=== PATIENT | female | born 1985 | race Caucasian/White ===

== ENCOUNTER 2017-02-21 06:11 | Day surgery (SDC) | payer OTHER ==
[2017-02-09 13:04] VITALS: BMI 25.0
[2017-02-21] MEDS ORDERED: HEPARIN NA (PORCINE) 5,000 UNITS/ML 1ML VIAL ONE (07:00)
[2017-02-21] MEDS ORDERED: BUPIVACAINE HCL/PF 2.5 MG/ML - 30 ML VIAL IJ ONE (07:05)
[2017-02-21] MEDS ORDERED: LIDOCAINE HCL 1%, 10 MG/ML (20ML VIAL) ONE (07:05)
[2017-02-21] MEDS ORDERED: ePHEDrine SULFATE 50 MG/1 ML AMPULE ONE (07:18)
[2017-02-21] MEDS ORDERED: PROPOFOL 20 ML ONE ×8 (07:19→09:59)
[2017-02-21] MEDS ORDERED: SUCCINYLCHOLINE CHLORIDE 200 MG/10 ML VIAL ONE (07:19)
[2017-02-21] MEDS ORDERED: MIDAZOLAM HCL 2 MG/2 ML SINGLE DOSE VIAL ONE ×2 (07:19→08:10)
[2017-02-21] MEDS ORDERED: KETOROLAC TROMETHAMINE 30 MG/1 ML VIAL ONE (07:23)
[2017-02-21] MEDS ORDERED: ONDANSETRON 4 MG/2 ML VIAL ONE (07:23)
[2017-02-21] MEDS ORDERED: ceFAZolin SODIUM 1 GM VIAL ONE (07:23)
[2017-02-21] MEDS ORDERED: DEXAMETHASONE SOD PHOSPHATE 4 MG/1 ML VIAL ONE (07:23)
[2017-02-21] MEDS ORDERED: BUPIVACAINE HCL/PF 0.5% (5MG/ML) 10 ML VIAL ONE (07:48)
[2017-02-21] MEDS ORDERED: LIDOCAINE 1%-EPI 1:100,000 30 ML MDV IJ ONE (08:46)
[2017-02-21] MEDS ORDERED: oxyCODONE HCL 5 MG TABLET PO PRN ×3 (11:24→11:48)
[2017-02-21] MEDS ORDERED: ONDANSETRON 4 MG/2 ML VIAL IVPUSH PRN (11:24)
[2017-02-21] MEDS ORDERED: LACTATED RINGERS SOLUTION 1,000 ML IV SCH ×2 (11:30→12:00)
[2017-02-21] MEDS ORDERED: ONDANSETRON 4 MG/2 ML VIAL IVPB PRN (11:55)
[2017-02-21] MEDS ORDERED: PROMETHAZINE HCL 25 MG/1 ML VIAL IVPUSH PRN (11:56)
[2017-02-21] MEDS ORDERED: ACETAMINOPHEN INJECTION 100 ML IVPB ONE (14:33)
[2017-02-21] MEDS ORDERED: ACETAMINOPHEN 1000 MG/100 ML VIAL (NON FORMULARY) IVPB ONE (15:06)
[2017-02-21] MEDS ORDERED: PROMETHAZINE HCL 25 MG/1 ML VIAL ONE (17:21)
[2017-02-21 18:43] VITALS: TEMP 97.6
[2017-02-21 18:56] VITALS: BP 104/72; PULSE 80
--- NOTE | 2017-02-21 19:16 | OP ---
DATE OF OPERATION: 02/21/2017 PREOPERATIVE DIAGNOSIS: Abdominal lipodystrophy with section scar deformity. POSTOPERATIVE DIAGNOSIS: Abdominal lipodystrophy with section scar deformity. ATTENDING SURGEON: Wilma Alvarez M.D. ASSISTANTS: None. ANESTHESIA: Sedation with spinal anesthesia. DESCRIPTION OF PROCEDURE: Patient is marked in the holding area, awake, aware of all incisions, resulting in scars, understands and agrees to proceed. Patient is given 5000 units of subcutaneous heparin preoperatively. Given a gram of Ancef preoperatively. Brought to the operating room, placed in a supine position. After anesthesia is given, she is prepped and draped in standard surgical fashion. A timeout is called. Patient, procedure, incision sites are verified. After assessment that the spinal anesthesia is in fact working, a small stab wound incision is made within the planned resection pattern of the skin and the infiltration is performed. Infiltration wetting solution is a liter of normal saline with 20 mL of 1% lidocaine plain, and 1 ampule 1:100,000 epinephrine. A total of 2500 mL of wetting solution is infiltrated in the upper and lower abdomen, altogether a full 25 minutes is awaited for effect of the wetting solution. After waiting 25 minutes, the SAFE liposuction technique is performed using a nonsuction pre-tunneling and nonsuction post-tunneling technique with 4 mm basket tipped cannula, after which the planned liposuction is performed with a 5 mm cannula using a power assisted liposuction system. The more superficial liposuction is performed using the 4 mm cannula using a power assisted system. The lipoaspirates are 1750 mL from the lower abdomen, 550 abdomen from the upper abdomen, and 200 mL miscellaneously around the lateral abdomen for a total lipoaspirate in the case of 2500 mL. The attention is then directed toward the resection of skin and fat. The scar is marked and an incision is made 1.5 cm inferior to this, excising the entirety of the scar. This incision is then carried down to the level of the abdominal wall fascia, dissection then carried along the abdominal wall fascia carefully dividing, perforating blood vessels as they are encountered. No undermining of the superior abdominal skin fat is performed without the need to flex the patient, closure is able to be performed without tension, and the umbilicus is left in situ. The closure is then performed over a size 10 flat ARTUR drain brought out through the right lateral extent of the incision, secured with the 3-0 silk drain suture. Closure is performed on the superficial fascial system sutures with 2-0 Vicryl buried suture. Skin is then closed with a series of interrupted buried deep dermal 3-0 Monocryl suture followed by running subcuticular Monocryl suture. The liposuction holes that were not excised are closed with a series of interrupted 5-0 nylon suture, liposuction portals are dressed with bacitracin, eye patch, and Tegaderm. The mini tummy tuck scar is dressed with a series of Steri-Strips. ABD gauze is applied. A compressive abdominal binder is placed. The drain is placed to bulb suction. Patient is awoken from anesthesia, transferred to recovery without complication. WILMA ALVAREZ M.D. [id number]
--- NOTE | 2017-02-23 15:45 | PATH ---
Surgical Pathology Report Patient Name: ANNABEL CORNELL [facility]. Rec. #: [id number] /Age/Gender: 1985 (Age: 31) / F Account: [id number] Location: [facility] Taken: 02/21/2017 Received: 02/21/2017 Reported: 02/23/2017 Physicians: Sergio Walker Specimen(s) Received ABDOMINAL SKIN AND TISSUE Clinical History Cosmetic Final Diagnosis ABDOMINAL SKIN AND TISSUE, LIPOSUCTION AND MINI ABDOMINOPLASTY: SKIN (WITH SCAR) AND ADIPOSE TISSUE, DESCRIBED (GROSS EXAMINATION ONLY). Electronically Signed Cynthia Neri M.D. Gross Description Received in formalin labeled "abdominal skin and tissue," is a 314 g, 19.5 x 10.5 cm valdivia, elliptical, unoriented portion of skin excised to depth of 3.5 cm. The epidermal surface displays a 12.5 cm in length linear scar with a central defect. Sectioning of the underlying soft tissue reveals predominantly yellow, lobulated adipose tissue with foci of firm fibrous tissue in the area of the scar. No masses are identified. No sections are submitted, gross only. /02/22/2017 saudi02/22/2017
== END 2017-02-21 18:35 | disposition home or self-care (01) ==
LOC: FASU 06:11
PROVIDERS: ATTEND Plastic Surgery
PROC: 0J080ZZ Alteration of Abdomen Subcutaneous Tissue and Fascia, Open Approach (ICD-10-PCS; 2017-02-21)
PROC: 0J083ZZ Alteration of Abdomen Subcutaneous Tissue and Fascia, Percutaneous Approach (ICD-10-PCS; principal; 2017-02-21 09:13)
DX: Z41.1 Encounter for cosmetic surgery (principal); E88.1 Lipodystrophy, not elsewhere classified; L90.5 Scar conditions and fibrosis of skin
CPT/HCPCS: 84703; 88300-TC; 94760; J1644

== ENCOUNTER 2021-06-30 18:22 | Inpatient (IN) | payer OTHER ==
[2021-06-30] MEDS ORDERED: morphine CARPU-JECT 4 MG/1 ML DISP.SYRIN IVPUSH ONE (19:22)
[2021-06-30] MEDS ORDERED: SODIUM CHLORIDE 1,000 ML IV ONE ×2 (19:22→22:07)
[2021-06-30] MEDS ORDERED: VANCOMYCIN 1 GM in D5W (PRE-DOCKED) 1,000 MG/250 ML IVPB ONE (19:22)
[2021-06-30] MEDS ORDERED: AMPICILLIN NA/SULBACTAM NA 1.5 GM in SODIUM CHLORIDE 100 ML IVPB ONE (19:23)
[2021-06-30] MEDS ORDERED: ACETAMINOPHEN 1000 MG/100 ML VIAL IVPB ONE (19:38)
[2021-06-30] MEDS ORDERED: VANCOMYCIN 1,000 MG VIAL (RESTRICTED TO ID ONLY) ONE (19:42)
[2021-06-30] MEDS ORDERED: ACETAMINOPHEN INJECTION 100 ML IVPB ONE (19:42)
[2021-06-30] MEDS ORDERED: AMPICILLIN NA/SULBACTAM NA 1.5 GM VIAL ONE (19:42)
[2021-06-30 20:07] LABS: BASO % 0.3 % (0-2.0); EOS % 0.6 % (0-4.5); HEMATOCRIT 30.1 % (32.4-45.2); HEMOGLOBIN 9.8 GM/dl (10.7-15.3); LYMPH % 17.4 % (8-40); MCH 28.8 pg (25.7-33.7); MCHC 32.6 g/dl (32.0-36.0); MEAN CELL VOLUME 88.4 fl (80-96); MEAN PLT VOLUME 7.1 fl (7.5-11.1); NEUT % 76.7 % (42.8-82.8); PLATELET COUNT 508 10^3/uL (134-434); RBC 3.41 M/mm3 (3.60-5.2); RDW 12.7 % (11.6-15.6); WHITE BLOOD COUNT 15.4 K/mm3 (4.0-10.8)
[2021-06-30 20:18] LABS: ALBUMIN 2.4 g/dl (3.4-5.0); BILIRUBIN,TOTAL 0.4 mg/dl (0.2-1); CALCIUM 8.1 mg/dl (8.5-10); CREATININE 0.4 mg/dl (0.55-1.3); TOT PROT 5.7 g/dl (6.4-8.2)
[2021-06-30 20:27] LABS: EPITHELIAL CELLS FEW /hpf
[2021-06-30] MEDS ORDERED: KETOROLAC TROMETHAMINE 30 MG/1 ML VIAL ONE (21:48)
[2021-06-30] MEDS ORDERED: ONDANSETRON *ODT* 4 MG TABLET ONE (22:03)
[2021-06-30] MEDS ORDERED: ONDANSETRON *ODT* 4 MG TABLET SL ONE (22:03)
[2021-06-30] MEDS ORDERED: KETOROLAC TROMETHAMINE 30 MG/1 ML VIAL IVPUSH ONE (22:03)
[2021-06-30 22:04] LABS: LACTIC ACID 3.4 mmol/L (0.4-2.0)
[2021-06-30] MEDS ORDERED: diphenhydrAMINE HCL 25 MG CAPSULE (FP) PO ONE (23:25)
[2021-06-30] MEDS ORDERED: ACETAMINOPHEN 500 MG TABLET (FP) PO PRN (23:28)
[2021-07-01] MEDS ORDERED: ACETAMINOPHEN 325 MG TABLET (FP) ONE (02:13)
[2021-07-01] MEDS ORDERED: AMPICILLIN NA/SULBACTAM NA 1.5 GM VIAL ONE ×3 (02:23→09:15)
[2021-07-01] MEDS: AMPICILLIN NA/SULBACTAM NA 1.5 GM in SODIUM CHLORIDE 100 ML IVPB SCH ×2 (02:28→09:24)
[2021-07-01 03:05] VITALS: BMI 32.5
[2021-07-01] MEDS ORDERED: IBUPROFEN 400 MG TABLET (FP) PO ONE ×2 (03:20→14:00)
[2021-07-01] MEDS ORDERED: SODIUM CHLORIDE 100 ML IVPB ONE ×3 (04:13→18:00)
[2021-07-01] MEDS: LEVOTHYROXINE NA 100 MCG TABLET (FP) PO SCH (06:42)
[2021-07-01 07:26] LABS: BASO % 0.9 % (0-2.0); EOS % 0.8 % (0-4.5); HEMOGLOBIN 8.6 GM/dl (10.7-15.3); LYMPH % 17.3 % (8-40); MCH 29.2 pg (25.7-33.7); MCHC 34.2 g/dl (32.0-36.0); MEAN CELL VOLUME 85.3 fl (80-96); MEAN PLT VOLUME 6.6 fl (7.5-11.1); MONO % 4.8 % (3.8-10.2); NEUT % 76.2 % (42.8-82.8); PLATELET COUNT 404 10^3/uL (134-434); RBC 2.94 M/mm3 (3.60-5.2); RDW 12.6 % (11.6-15.6); WHITE BLOOD COUNT 10.5 K/mm3 (4.0-10.8)
[2021-07-01 07:37] LABS: CALCIUM 7.7 mg/dl (8.5-10); CREATININE 0.4 mg/dl (0.55-1.3)
[2021-07-01] MEDS: ACETAMINOPHEN 325 MG TABLET (FP) PO PRN (09:21)
[2021-07-01] MEDS: SENNOSIDES 8.6MG TABLET (FP) PO SCH ×2 (09:22→21:07)
[2021-07-01] MEDS ORDERED: ENOXAPARIN NA (PORCINE) 40 MG/0.4 ML DISP.SYRIN SQ SCH (10:00)
[2021-07-01] MEDS ORDERED: VANCOMYCIN 1 GM in D5W (PRE-DOCKED) 1,000 MG/250 ML IVPB SCH (10:00)
[2021-07-01] MEDS ORDERED: AMPICILLIN NA/SULBACTAM NA 3 GM VIAL ONE (18:00)
[2021-07-01] MEDS: AMPICILLIN NA/SULBACTAM NA 3 GM in SODIUM CHLORIDE 100 ML IVPB SCH (18:06)
[2021-07-01] MEDS: metoPROLOL SUCCINATE 25 MG TAB.SR.24H (FP) PO SCH (21:07)
[2021-07-02] MEDS: AMPICILLIN NA/SULBACTAM NA 3 GM in SODIUM CHLORIDE 100 ML IVPB SCH ×3 (02:29→17:31)
[2021-07-02] MEDS: ACETAMINOPHEN 325 MG TABLET (FP) PO ONE ×2 (02:30→06:56)
[2021-07-02] MEDS: oxyCODONE HCL 5 MG TABLET PO ONE ×2 (02:30→06:56)
[2021-07-02] MEDS: LEVOTHYROXINE NA 100 MCG TABLET (FP) PO SCH (06:14)
[2021-07-02 08:19] LABS: ALBUMIN 2.2 g/dl (3.4-5.0); BILIRUBIN,TOTAL 0.4 mg/dl (0.2-1); CALCIUM 8.2 mg/dl (8.5-10); CREATININE 0.4 mg/dl (0.55-1.3); MAGNESIUM 1.9 mg/dL (1.8-2.4); TOT PROT 5.4 g/dl (6.4-8.2)
[2021-07-02 08:23] LABS: BASO % 1.3 % (0-2.0); EOS % 0.9 % (0-4.5); HEMATOCRIT 28.4 % (32.4-45.2); HEMOGLOBIN 9.6 GM/dl (10.7-15.3); LYMPH % 18.1 % (8-40); MCH 28.7 pg (25.7-33.7); MCHC 33.6 g/dl (32.0-36.0); MEAN CELL VOLUME 85.4 fl (80-96); MEAN PLT VOLUME 6.7 fl (7.5-11.1); MONO % 4.6 % (3.8-10.2); NEUT % 75.1 % (42.8-82.8); PLATELET COUNT 452 10^3/uL (134-434); RBC 3.33 M/mm3 (3.60-5.2); RDW 12.7 % (11.6-15.6); WHITE BLOOD COUNT 9.7 K/mm3 (4.0-10.8)
[2021-07-02] MEDS ORDERED: ONDANSETRON 4 MG/2 ML VIAL IVPUSH PRN (09:01)
[2021-07-02] MEDS ORDERED: SODIUM CHLORIDE 100 ML IVPB ONE ×2 (09:07→17:26)
[2021-07-02] MEDS ORDERED: AMPICILLIN NA/SULBACTAM NA 3 GM VIAL ONE ×2 (09:07→17:26)
[2021-07-02] MEDS: SENNOSIDES 8.6MG TABLET (FP) PO SCH ×2 (09:32→21:01)
[2021-07-02] MEDS ORDERED: ONDANSETRON 4 MG/2 ML VIAL IVPUSH ONE (11:30)
[2021-07-02] MEDS ORDERED: ACETAMINOPHEN 325 MG TABLET (FP) PO PRN (15:30)
[2021-07-02] MEDS: HEPARIN NA (PORCINE) 5,000 UNITS/ML 1ML VIAL SQ SCH (21:01)
[2021-07-02] MEDS: oxyCODONE HCL 5 MG TABLET PO PRN (21:02)
[2021-07-02] MEDS: metoPROLOL SUCCINATE 25 MG TAB.SR.24H (FP) PO SCH (21:02)
[2021-07-02] MEDS ORDERED: diphenhydrAMINE HCL 25 MG CAPSULE (FP) PO ONE (21:37)
[2021-07-03] MEDS ORDERED: AMPICILLIN NA/SULBACTAM NA 3 GM VIAL ONE ×2 (02:02→09:02)
[2021-07-03] MEDS ORDERED: SODIUM CHLORIDE 100 ML IVPB ONE ×2 (02:02→09:02)
[2021-07-03] MEDS: AMPICILLIN NA/SULBACTAM NA 3 GM in SODIUM CHLORIDE 100 ML IVPB SCH ×2 (02:25→09:21)
[2021-07-03] MEDS: LEVOTHYROXINE NA 100 MCG TABLET (FP) PO SCH (06:48)
[2021-07-03] MEDS ORDERED: oxyCODONE HCL 5 MG TABLET PO PRN (09:20)
[2021-07-03] MEDS: oxyCODONE HCL 5 MG TABLET PO PRN (09:22)
[2021-07-03] MEDS: HEPARIN NA (PORCINE) 5,000 UNITS/ML 1ML VIAL SQ SCH (09:23)
[2021-07-03] MEDS: ACETAMINOPHEN 325 MG TABLET (FP) PO PRN (09:24)
[2021-07-03] MEDS: SENNOSIDES 8.6MG TABLET (FP) PO SCH (09:27)
[2021-07-03] MEDS ORDERED: MULTIVITAMINS (DAILY MVI) TABLET (FP) PO SCH (10:00)
[2021-07-03 10:39] LABS: BASO % 0.5 % (0-2.0); EOS % 0.9 % (0-4.5); HEMOGLOBIN 10.3 GM/dL (10.7-15.3); LYMPH % 25.1 % (8-40); MCH 29.7 pg (25.7-33.7); MCHC 34.4 g/dl (32.0-36.0); MEAN CELL VOLUME 86.3 fl (80-96); MEAN PLT VOLUME 6.9 fl (7.5-11.1); MONO % 6.2 % (3.8-10.2); NEUT % 67.3 % (42.8-82.8); PLATELET COUNT 443 10^3/uL (134-434); RBC 3.48 M/mm3 (3.60-5.2); RDW 13.4 % (11.6-15.6); WHITE BLOOD COUNT 7.4 K/mm3 (4.0-10.0)
[2021-07-03 11:07] LABS: CALCIUM 8.7 mg/dL (8.5-10.1); MAGNESIUM 2.2 mg/dL (1.8-2.4)
[2021-07-03 11:08] LABS: ALBUMIN 2.1 g/dl (3.4-5.0); BLOOD UREA NITROGEN 10.9 mg/dL (7-18); CREATININE 0.4 mg/dL (0.55-1.3)
[2021-07-03 11:11] LABS: BILIRUBIN,TOTAL 0.5 mg/dL (0.2-1)
[2021-07-03 11:13] LABS: TOT PROT 5.9 g/dl (6.4-8.2)
[2021-07-03 11:23] LABS: RETICULOCYTES 2.71 % (0.5-1.5)
[2021-07-03 16:38] VITALS: BP 112/43; PULSE 87; TEMP 98.8
== END 2021-07-03 17:28 | disposition home or self-care (01) | DRG 813 ==
LOC: FER 18:22 → FM/S 22:12 → UNDOADMIN 07-01 02:12 → FM/S 07-01 02:12 → J8W 07-02 14:01
PROVIDERS: ADMIT Internal Medicine; ATTEND Nurse Practitioner Family
PROC: 0Y9D30Z Drainage of Left Upper Leg with Drainage Device, Percutaneous Approach (ICD-10-PCS; principal; 2021-07-02)
PROC: 0Y9C30Z Drainage of Right Upper Leg with Drainage Device, Percutaneous Approach (ICD-10-PCS; 2021-07-02)
DX: L76.82 Other postprocedural complications of skin and subcutaneous tissue (principal); L03.116 Cellulitis of left lower limb; L03.115 Cellulitis of right lower limb; E03.9 Hypothyroidism, unspecified; D64.9 Anemia, unspecified; E87.2 Acidosis; I10 Essential (primary) hypertension; D72.829 Elevated white blood cell count, unspecified; R50.9 Fever, unspecified; Z79.891 Long term (current) use of opiate analgesic; Y83.9 Surgical procedure, unspecified as the cause of abnormal reaction of the patient, or of later complication, without mention of misadventure at the time of the procedure
CPT/HCPCS: 10030; 36415; 71045-TC-FY; 72193-TC; 76882-TC-RT-FY; 80048; 80053; 81003; 81015; 83540; 83550; 83605; 83735; 84703; 85025; 85027; 85045; 87040; 87070; 87075; 87086; 87102; 87116; 87205; 87206; 87210; 93970-TC; 94010; 99285-25; C9803; J0131; J1644; Q0162; Q9967; U0003; U0005

== ENCOUNTER 2022-03-02 04:22 | Day surgery (SDC) | payer OTHER ==
[2022-03-02] MEDS ORDERED: IBUPROFEN 800 MG/8 ML IJ IVPB PRN (11:26)
[2022-03-02] MEDS ORDERED: IBUPROFEN 600 MG TABLET (FP) PO PRN (11:26)
[2022-03-02] MEDS ORDERED: ONDANSETRON 4 MG/2 ML VIAL IVPUSH PRN ×2 (11:26→12:19)
[2022-03-02] MEDS ORDERED: oxyCODONE HCL 5 MG TABLET PO PRN ×2 (11:26→12:19)
[2022-03-02] MEDS ORDERED: ELECTROLYTE-148 SOLN 1,000 ML IV SCH (11:30)
[2022-03-02] MEDS ORDERED: MIDAZOLAM HCL 2 MG/2 ML SINGLE DOSE VIAL ONE (12:01)
[2022-03-02] MEDS ORDERED: DEXAMETHASONE SOD PHOSPHATE 4 MG/1 ML VIAL ONE (12:01)
[2022-03-02] MEDS ORDERED: LIDOCAINE HCL/PF 2% SDV 5ML VIAL ONE (12:01)
[2022-03-02] MEDS ORDERED: PROPOFOL 20 ML ONE ×2 (12:01)
[2022-03-02] MEDS ORDERED: KETOROLAC TROMETHAMINE 30 MG/1 ML VIAL ONE (12:01)
[2022-03-02] MEDS ORDERED: ONDANSETRON 4 MG/2 ML VIAL ONE ×2 (12:01→14:35)
[2022-03-02] MEDS ORDERED: LACTATED RINGERS SOLUTION 1,000 ML IV SCH (12:30)
[2022-03-02] MEDS ORDERED: ESMOLOL 2500 MG/250 ML 2,500,000 MCG/250 ML INFUS.BAG IVPB ONE (12:59)
[2022-03-02] MEDS ORDERED: FENTANYL CITRATE/PF 50 MCG/ML VIAL ONE ×2 (13:53→14:31)
[2022-03-02 16:59] VITALS: BP 115/69; PULSE 88; TEMP 98.4
== END 2022-03-02 14:45 | disposition home or self-care (01) ==
LOC: JASU-SURG 04:22
PROVIDERS: ATTEND Obstetrics & Gynecology
PROC: 0UDB7ZX Extraction of Endometrium, Via Natural or Artificial Opening, Diagnostic (ICD-10-PCS; 2022-03-02)
PROC: 0UJD8ZZ Inspection of Uterus and Cervix, Via Natural or Artificial Opening Endoscopic (ICD-10-PCS; 2022-03-02)
PROC: 0UB98ZZ Excision of Uterus, Via Natural or Artificial Opening Endoscopic (ICD-10-PCS; principal; 2022-03-02 12:30)
DX: D25.0 Submucous leiomyoma of uterus (principal)
CPT/HCPCS: 81025; 88305-TC; 94760